=== PATIENT | male | born 1940 | race Caucasian/White ===

== ENCOUNTER 2016-12-15 12:57 | Emergency (ER) | payer OTHER ==
[~2016-12-15 12:57] MED LIST: DEXTROSE 50% 25 GM / 50ML DISP.SYRIN. IV ONE; EPINEPHrine SYRINGE 1 MG/10 ML SYRINGE ONE
--- NOTE | 2016-12-15 14:18 | PHYS DOC ---
Adult General Chief Complaint Chief Complaint: CPR/FULL ARREST HPI HPI Patient is a 76 year old male who presents in cardiac arrest with ongoing CPR. Patient had an unwitnessed cardiac arrest while mowing lawn. Patient's last seen normal 10 minutes prior to being found. Reported by standard CPR. Patient found to be in V. fib with double filled attempted defibrillation attempts. Serial doses of epinephrine and mechanical chest compressions during transport. Time of dispatch/downtime greater than 25 minutes upon ED arrival. ED course: Patient manually being ventilated via bag valve mask and respiratory therapy, ongoing chest compressions with an IO placed in his left tibia. Chest compressions continued [facility]. Aggressive CPR protocols continued, patient with no cardiac response asystole on monitor and cardiac asystole confirmed by bedside ultrasound. Patient pronounced at 1302. Patient's PCP and canceling and cutting control clerk notified. Awaiting family arrival. Review of Systems Review of Systems ROS as per HPI. Physical Exam Physical Exam Constitutional: Unresponsive, asystolic, GCS of 3. [] HENT: Normocephalic, atraumatic, bilateral external ears normal, oropharynx moist. Endotracheal tube in place with fog present and tube.[] Eyes: Pupils dilated. [] Neck: Supple, trachea midline, no JVD.. [] Cardiovascular: Absence of cardiac sounds noted[] Lungs & Thorax: Lateral breath sounds, absence of air noises in her epigastrium noted[] Abdomen: Bowel sounds normal, soft, distended. [] Skin: Warm, dry. [] Back: No tenderness. [] Extremities:No edema. IO present and left tib-fib [] Neurologic: Unresponsive, GCS of 3. [] Psychologic: Affect normal, judgement normal, mood normal. [] EKG EKG [] Radiology/Procedures Radiology/Procedures [] Course & Med Decision Making Course & Med Decision Making Pertinent Labs and Imaging studies reviewed. (See chart for details) [Aggressive ACLS protocols continued upon ED arrival. Patient unresponsive without return of spontaneous circulation despite greater than 25 minutes of resuscitation. Patient pronounced at 13:02. Plan to contact next of kin, PCP and corner] Clarissa Disclaimer Clarissa Disclaimer This electronic medical record was generated, in whole or in part, using a voice recognition dictation system. Departure Departure Impression: Primary Impression: Cardiac arrest Disposition: 20 Condition: STABLE Referrals: UNKNOWN PCP NAME (PCP) DEB PATEL DO Dec 15, 2016 14:18
== END 2016-12-15 20:00 | disposition expired ==
LOC: EDBD 13:01 → ER 13:01
DX: I46.9 Cardiac arrest, cause unspecified (principal)
CPT/HCPCS: 92950; 99285; J0171; J7042